=== PATIENT | female | born 2000 | race Caucasian/White ===

== ENCOUNTER 2020-10-03 16:19 | Emergency (ER) | payer OTHER ==
[~2020-10-03] VITALS: Ht 167.6 cm; Wt 58.0 kg
[2020-10-03] MEDS ORDERED: MORPHINE SULFATE 4 MG/ML CPJ (NOT FOR IM USE) IV STA (17:11)
[2020-10-03] MEDS ORDERED: SODIUM CHLORIDE 0.9% 1,000 ML IV ONE (17:15)
[2020-10-03 17:19] LABS: CLARITY URINE CLEAR (CLEAR); COLOR URINE YELLOW (YELLOW); KETONES URINE TRACE (NEGATIVE); LEUKOCYTE ESTERASE URINE 2+ (NEGATIVE); NITRITE URINE NEGATIVE (NEGATIVE); OCCULT BLOOD URINE TRACE (NEGATIVE); PROTEIN URINE 1+ (NEGATIVE); SPECIFIC GRAVITY URINE 1.033 (1.005-1.030)
[2020-10-03 18:01] LABS: BASOPHILS % 0.5 % (0.0-2.0); EOSINOPHILS % 0.1 % (0.0-5.0); HEMATOCRIT. 39.9 % (36.0-48.0); HEMOGLOBIN. 13.5 g/dL (12.0-16.0); LYMPHOCYTES % 10.8 % (20.0-50.0); MEAN CORPUSCULAR HEMOGLOBIN 29.9 pg (28.0-32.0); MEAN CORPUSCULAR VOLUME 88.2 fL (81.0-99.0); MEAN PLATELET VOLUME 8.3 fl (7.4-10.4); MONOCYTES % 3.2 % (2.0-8.0); NEUTROPHILS % 85.4 % (40.0-76.0); PLATELET 215 x1000/uL (130-400); RED BLOOD CELL COUNT 4.53 mill/uL (4.2-5.4); RED CELL DISTRIBUTION WIDTH 13.1 % (11.6-14.6)
[2020-10-03 18:08] LABS: CHLORIDE 112 mEq/L (98-107)
[2020-10-03] MEDS ORDERED: CEPHALEXIN 250MG CAPSULE PO ONE (18:15)
[2020-10-03] MEDS ORDERED: IBUPROFEN 400MG TABLET PO ONE (18:15)
[2020-10-03 18:19] LABS: PROTHROMBIN TIME 10.3 sec (9.6-11.0)
[2020-10-03] MEDS ORDERED: IBUP-2029 MT (19:12)
[2020-10-03] MEDS ORDERED: CEPH500C2 MT (19:12)
[2020-10-03 19:25] VITALS: BP 130/78
== END 2020-10-03 19:32 | disposition home or self-care (01) ==
LOC: ER 16:39
DX: N39.0 Urinary tract infection, site not specified (principal); F12.10 Cannabis abuse, uncomplicated
CPT/HCPCS: 36415; 71045; 76705; 80053; 81003; 81025; 83690; 85025; 85610; 87086; 93005; 99285; J7030